=== PATIENT | female | born 1935 | race Caucasian/White ===

== ENCOUNTER 2018-10-20 14:09 | Emergency (ER) | payer OTHER ==
[2018-10-20] MEDS ORDERED: PIPERACILLIN SODIUM/TAZOBACTAM 3.375 GM in NS 100 ML IV ONE (15:26)
[2018-10-20] MEDS ORDERED: VANCOMYCIN 1 GM in NS 250 ML IV ONE (15:26)
--- NOTE | 2018-10-20 15:50 | EDPHY ---
H & P Time Seen by Provider: 10/20/18 14:55 HPI/ROS: CHIEF COMPLAINT: Left foot infection. HISTORY OF PRESENT ILLNESS: Patient brought in by her daughter for evaluation of left foot wound. Wound has been present since at least last summer after puncture wound occurred. She has had various stages of healing however wound has never completely healed. She does have wound care nurse coming out 3 times a week since last June. Yesterday wound care nurse came for dressing change and thought that it "looked bad and smelled bad". She did make an appointment for the patient to be seen next week, I believe Wednesday, [facility]. Patient states that she has no sensation to her foot secondary to neuropathy. She does state that she felt throbbing, which is new, last night and today. She denies any fevers. She states she has had chills but this has been ongoing for 6 months. She denies nausea or vomiting. She did have a diarrheal illness several weeks ago but that has improved. She also has a somewhat chronic left knee wound but this has not been bothering her. 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 REVIEW OF SYSTEMS: Constitutional: No fever, no chills. Eyes: No discharge. ENT: No sore throat. Cardiovascular: No chest pain, no palpitations. Respiratory: No cough, no shortness of breath. Gastrointestinal: No abdominal pain, no vomiting. Genitourinary: No dysuria. Musculoskeletal: No back pain. Skin: No rashes. Neurological: No headache. General Appearance: Alert, no distress. Eyes: Pupils equal and round no pallor or injection. ENT, Mouth: Mucous membranes moist. Respiratory: There are no retractions, lungs are clear to auscultation. Cardiovascular: Regular rate and rhythm. Gastrointestinal: Abdomen is soft and nontender, no masses, bowel sounds normal. Neurological: Awake and alert, cranial nerves intact, no focal neurologic deficits. Skin: Warm and dry, no rashes. Multiple scabs and minor wounds to left lower extremity. Knee has a 2 x 3 cm ecchymotic wound with some serosanguineous discharge. Left foot quite abnormal in structure secondary to Charcot foot. There is a chronic open ulcer to the medial plantar aspect of the arch area. Postsurgical changes as well. Foul odor. Musculoskeletal: Neck is supple nontender. See above for foot exam. Movement at baseline but restricted secondary to Charcot changes. Right BKA. Psychiatric: Patient is oriented X 3, there is no agitation. Medical/surgical history: Neuropathy, depression anxiety, hypothyroid, Charcot foot. Surgeries include hysterectomy, sinus surgery, foot surgery, other abdominal surgery. Social history: Nonsmoker. Recently moved from [facility] to [facility]. No primary care in the area. Smoking Status: Never smoked Constitutional: Initial Vital Signs Temperature (C) 36.8 C 10/20/18 14:36 Heart Rate 74 10/20/18 14:36 Respiratory Rate 18 10/20/18 14:36 Blood Pressure 152/100 H 10/20/18 14:36 O2 Sat (%) 93 10/20/18 14:36 O2 Delivery Mode Room Air Allergies/Adverse Reactions: cephalexin Allergy (Verified 10/20/18 14:35) doxycycline Allergy (Verified 10/20/18 14:35) nitrofurantoin [From Macrobid] Allergy (Verified 10/20/18 14:35) Penicillins Allergy (Verified 10/20/18 14:35) Home Medications: Medication Instructions Recorded Cymbalta 03/21/18 Gabapentin 03/21/18 LORazepam 03/21/18 Levothyroxine 03/21/18 Seroquel 03/21/18 Medical Decision Making - Diagnostics Imaging Results: Imaging Impressions Extremity CT 10/20/18 15:28 Impression: 1. Charcot arthropathy with prior mid foot osseous fusion. A cutaneous defect is identified over the plantar medial soft tissues the midfoot, without definite abscess or cortical bony erosive changes. 2. Prior fracture of the inferior tip of the medial malleolus. 3. Osteopenia of the lateral aspect of the talus and the distal fibula may be related to disuse or altered biomechanics. Results called to Dr. Roxy Ureña at 4:15 PM. Comment: As clinically appropriate, MRI examination of the left foot without and with contrast may be more sensitive in detecting early stage osteomyelitis. ED Course/Re-evaluation: Patient with redness after initiation of vancomycin effusion. No shortness of breath. Infusion rate slowed. 4:[address] Suresh Colin, infectious Disease. Reviewed history of present illness. He reviewed wound care notes from Dr. Riggs's wound care nurse. Reviewed labs and imaging results. Plan is for no oral antibiotics at time of discharge and patient will see Dr. Gooden, infectious disease, tomorrow at 1:00 p.m.. 6:00 p.m. recheck shows patient stable, no new complaints, medication almost complete. Questions answered plan on discharge. Differential Diagnosis: Differential diagnosis includes but is not limited to abscess, cellulitis, osteomyelitis, chronic wound. After evaluation suspicious for reinfected chronic wound although no specific findings of osteomyelitis on CT scan. May need MRI for more definitive evaluation. No evidence of necrotizing fasciitis, cellulitis, bacteremia or sepsis. Given IV vancomycin in the emergency department. Consulted Infectious Disease and will not discharge with oral antibiotics pending re-evaluation tomorrow at 1:[address] Gooden's office. Patient and family understand follow-up plan. They have good understanding of home wound care. Also understand return precautions. Stable for discharge. - Data Points Laboratory Results: Laboratory Results 10/20/18 15:40 10/20/18 10/20/18 10/20/18 15:45 15:40 15:40 Hct 41.2 % % (38.0-47.0) ESR 20 MM/HR MM/HR (0-30) POC Sodium 142 mEq/L mEq/L (135-145) POC Potassium 3.8 mEq/L mEq/L (3.3-5.0) POC Chloride 105.0 mEq/L mEq/L (97-110) POC Total CO2 26 mEq/L mEq/L (22-31) POC BUN 12 mg/dL mg/dL (7-23) POC Creatinine 0.8 mg/dL mg/dL (0.6-1.0) POC Glucose 93 mg/dL mg/dL (70-100) POC Calcium 9.6 mg/dL mg/dL (8.5-10.4) POC Total Bilirubin 0.7 mg/dL mg/dL (0.1-1.4) POC AST 27 IU/L IU/L (14-46) POC ALT 23 IU/L IU/L (9-52) POC Alk Phosphatase 88 IU/L IU/L (38-126) C-Reactive Protein 20.4 mg/L H mg/L (<10.0) POC Total Protein 7.1 g/dL g/dL (6.3-8.2) POC Albumin 3.3 g/dL L g/dL (3.5-5.0) Medications Given: Discontinued Medications Diphenhydramine HCl (Benadryl Injection) 25 mg IVP EDNOW ONE Stop: 10/20/18 16:36 Last Admin: 10/20/18 16:36 Dose: 25 mg Vancomycin HCl 1 gm/ Sodium (Chloride) 250 mls @ 250 mls/hr IV EDNOW ONE PRN Reason: Protocol Stop: 10/20/18 16:25 Last Admin: 10/20/18 16:15 Dose: 250 mls Piperacillin Sod/Tazobactam (Sod 3.375 gm/ Sodium Chloride) 100 mls @ 200 mls/ hr IV EDNOW ONE PRN Reason: Protocol Stop: 10/20/18 15:55 Last Admin: 10/20/18 17:02 Dose: Not Given Sodium Chloride (Ns) 500 mls @ 1,500 mls/hr IV ONCE ONE Stop: 10/20/18 16:44 Last Admin: 10/20/18 16:25 Dose: 500 mls Point of Care Test Results: CBC CBC Collection Date 10/20/18 CBC Collection Time 15:40 WBC 9.66 RBC 4.99 HGB 12.9 HCT 39.8 PLT 192 Neut # 6.54 Neut 67.7 LYMPH # 1.91 LYMPH 19.8 MCV 79.8 Chemistry 10/20/18 15:45 POC Sodium 142 mEq/L mEq/L (135-145) POC Potassium 3.8 mEq/L mEq/L (3.3-5.0) POC Chloride 105.0 mEq/L mEq/L (97-110) POC Total CO2 26 mEq/L mEq/L (22-31) POC BUN 12 mg/dL mg/dL (7-23) POC Creatinine 0.8 mg/dL mg/dL (0.6-1.0) POC Glucose 93 mg/dL mg/dL (70-100) POC Calcium 9.6 mg/dL mg/dL (8.5-10.4) POC Total Bilirubin 0.7 mg/dL mg/dL (0.1-1.4) POC AST 27 IU/L IU/L (14-46) POC ALT 23 IU/L IU/L (9-52) POC Alk Phosphatase 88 IU/L IU/L (38-126) POC Total Protein 7.1 g/dL g/dL (6.3-8.2) POC Albumin 3.3 g/dL L g/dL (3.5-5.0) Departure - Departure Disposition: Home, Routine, Self-Care Clinical Impression: Chronic ulcer of left foot Qualifiers: Non-pressure ulcer stage: unspecified non-pressure ulcer stage Qualified Code(s ): L97.529 - Non-pressure chronic ulcer of other part of left foot with unspecified severity Condition: Fair Instructions: Wound Infection (ED) Additional Instructions: You have an appointment with Dr. Gooden at 1:00 p.m. Tomorrow, October 21. The office address is [address] [place] [address]. The office phone number is [phone]. This office is to the [facility]. We are not discharging you with any antibiotics. Usual wound care is appropriate for tonight and tomorrow morning. Follow up with the Infectious Disease doctor listed above without fail. Referrals: NONE *PRIMARY CARE P,. [Primary Care Provider] - As per Instructions Major Gooden MD [Medical Doctor] - As per Instructions
[2018-10-20] MEDS ORDERED: NS 500 ML IV ONE (16:25)
[2018-10-20 18:35] VITALS: BP 135/66
== END 2018-10-20 18:33 | disposition home or self-care (01) ==
LOC: CED 14:09
DX: L97.529 Non-pressure chronic ulcer of other part of left foot with unspecified severity (principal); M14.672 Charcot's joint, left ankle and foot; Z88.0 Allergy status to penicillin
CPT/HCPCS: 73700; 96365; 96366; 96375; 99285; J3370; 80053-ER; J2543

== ENCOUNTER → 2018-12-14 | Outpatient (CLI) | payer OTHER | LOC: BHFA 15:30 | PROVIDERS: ATTEND Internal Medicine Cardiovascular Disease | DX: G60.9 Hereditary and idiopathic neuropathy, unspecified (principal); L97.529 Non-pressure chronic ulcer of other part of left foot with unspecified severity ==